=== PATIENT | male | born 1990 | race Caucasian/White ===

== ENCOUNTER → 2024-03-10 | Outpatient (BNVA) | payer BC, MEDICAID, SELFPAY | END | disposition home or self-care (01) | PROVIDERS: PCP Nurse Practitioner Family; Referring Provider Nurse Practitioner Family; Visit Provider Urology | DX: Z30.2 Encounter for sterilization (principal); N40.0 Benign prostatic hyperplasia without lower urinary tract symptoms; E78.5 Hyperlipidemia, unspecified | CPT/HCPCS: 99202; G0463 ==

== ENCOUNTER 2024-05-25 09:20 | Day surgery (SDC) | payer BC, MEDICAID, SELFPAY ==
[2024-05-24 12:09] VITALS: BMI 28.6
[2024-05-25 09:40] VITALS: BP 133/81; PULSE 68; RESP 20; TEMP 36.4; O2SAT 99; BMI 30.4
[2024-05-25 13:42] VITALS: BP 110/74; PULSE 58; RESP 14; TEMP 36.4; O2SAT 100
--- NOTE | 2024-05-25 13:42 | SUR.PHASEII ---
pt received from OR in recovery bay 1. pt asleep but responds to voice, breathing unlabored on room air. v/s stable. pt dressing to scrotum cdi. report received from Fern MEJIA and Jerald TINOCO.
[2024-05-25 13:45] VITALS: BP 107/64; PULSE 59; RESP 13; TEMP 36.3; O2SAT 99
[2024-05-25 13:50] VITALS: BP 116/86; PULSE 64; RESP 16; TEMP 36.4; O2SAT 100
--- NOTE | 2024-05-25 13:51 | SUR.PHASEII ---
pt able to tolerate oral fluids without difficulty swallowing or nausea/vomiting.
[2024-05-25 13:55] VITALS: BP 120/78; PULSE 65; RESP 15; TEMP 36.4; O2SAT 100
--- NOTE | 2024-05-25 13:56 | PD.SUROPNT ---
Date of Procedure 05/25/24 Pre Op Diagnosis Elective sterilization Post Op Diagnosis Same Procedure Bilateral vasectomy Findings Bilateral vas no pathology Procedure Description Indication for procedure this is a 33-year-old gentleman he is with children desired bilateral vasectomy procedure and complications were discussed with patient in great detail informed consent is obtained he understood very well there is no warranty for permanent sterilization literature regarding bilateral vasectomy was provided to the patient Patient was brought to the operating room in a satisfactory condition after appropriate premedication was put on the operating table in the supine position he was appropriately identified by surgeon and operating room staff indication scope of the procedure were discussed with the patient again MAC anesthesia was given uneventfully parts were prepped and draped in the usual sterile fashion . Procedure patient was brought to the operating room in a satisfactory condition after appropriate premedication was put on the operating table in a supine position parts were prepped and draped in a usual sterile fashion. Next the right vas deferens was palpated between 2 fingers and a thumb 2% lidocaine with quarter percent Marcaine was instilled appropriately vertical skin incision was made proper hemostasis was secured. Next the vas deferens was brought into the incision it was from its various fascial coverings between 2 silver clips centimeter of the vas deferens was excised. The lumen of the vas deferens was diathermized with coagulation diathermy distal end of the vas deferens was buried between various fascial layers. Skin was approximated with 3-0 chromic. Similar procedure was repeated on the opposite side. Next this sterile dressings were applied. Pressure bandage was given Patient having tolerated the procedure well and was sent to recovery room in a satisfactory condition to be discharged home with full postoperative instructions were verbally as well as in writing to be followed in urology office in 6 weeks' time. Anesthesia MAC Pathology / specimen None Estimated Blood Loss 0.2 Condition Stable Disposition PACU Surgeon Willa Phillips MD Surgical Staff Operation Date: 05/25/24 11:45 Case Staff Anesthesiologist: Chris Bearden
[2024-05-25 14:10] VITALS: BP 124/83; PULSE 60; RESP 15; TEMP 36.4; O2SAT 100
--- NOTE | 2024-05-25 14:22 | SUR.PHASEII ---
pt awake and alert, breathing unlabored on room air. v/s stable. pt dressing to scrotum cdi. pt able to ambulate to wheelchair with steady gait. d/c instructions given with father Jose Carlos in room, all questions answered. pt d/c via wheelchair with all belongings.
== END 2024-05-25 14:22 | disposition home or self-care (01) ==
PROVIDERS: PCP Nurse Practitioner Family; Referring Provider Urology; Visit Provider Urology
PROC: (CPT 55250; principal; 2024-05-25 11:45)
DX: Z30.2 Encounter for sterilization (principal)
CPT/HCPCS: 55250; A4217; A4649; J2250; J2704; J3010; J3490; A9270; J0665